=== PATIENT | female | born 1965 | race African-American/Black ===

== ENCOUNTER 2018-05-21 14:14 | Observation (INO) ==
[2018-05-21] MEDS ORDERED: ENOXAPARIN 100 MG/ML SYRINGE SUBCUT STA (14:38)
[2018-05-21] MEDS ORDERED: ENOXAPARIN 120 MG/0.8 ML SYRINGE SUBCUT ONE (14:51)
[2018-05-21] MEDS: NITROGLYCERIN SL 0.4 MG TABLET SL PRN ×2 (14:52→15:18)
[2018-05-21 14:53] LABS: Basophils # 0.1 10*3/uL (0.0-0.2); Basophils % 0.7 % (0.0-0.8); Eosinophils # 0.2 10*3/uL (0.0-0.87); Hematocrit 39.8 VOL% (35.7-47.0); Hemoglobin 13.2 GM/DL (12.0-16.0); Immature Granulocytes % 0.2 %; Immature Granulocytes Absolute 0.02 #; Lymphocytes # 2.8 10*3/uL (1.4-4.0); Lymphocytes % 32.7 % (21.3-54.2); Mean Corpuscular HGB Conc 33.2 GM/DL (32-36); Mean Corpuscular Hemoglobin 30 PG (27-34); Mean Corpuscular Volume 91.1 FL (87-102); Mean Platelet Volume 8.8 FL (9.6-12.0); Monocytes # 0.8 10*3/uL (0.11-0.8); Monocytes % 9.5 % (1.7-12.7); Neutrophils # 4.6 10*3/uL (1.4-7.4); Neutrophils % 54.9 % (38.7-73.9); Platelet Count 381 T/CUMM (130-400); Red Blood Count 4.37 MC/CUMM (3.8-5.5); Red Cell Distribution Width 13.5 % (9.3-17.3); White Blood Count 8.4 T/CUMM (4-12)
[2018-05-21 15:19] LABS: Albumin 3.7 G/DL (3.4-5.0); Bilirubin,Total 0.4 MG/DL (0.2-1.0); Calcium 8.9 MG/DL (8.5-10.1); Osmolality,Calculated 278.3 MOS/KG (273-304); Potassium 3.6 MMOL/L (3.5-5.1); Total Protein 7.9 G/DL (6.4-8.3)
[2018-05-21] MEDS ORDERED: guaiFENesin/DM ER 600-30 MG TABLET PO PRN (16:31)
[2018-05-21] MEDS ORDERED: POTASSIUM CHLORIDE 20 MEQ TABLET PO PRN (16:31)
[2018-05-21] MEDS ORDERED: diphenhydrAMINE CAP 25 MG CAPSULE PO PRN (16:31)
[2018-05-21] MEDS ORDERED: ONDANSETRON 4 MG/2 ML VIAL IV PRN (16:31)
[2018-05-21] MEDS ORDERED: BISACODYL 5 MG TABLET PO PRN (16:31)
[2018-05-21] MEDS ORDERED: MAGNESIUM SULF RIDER 4 GM in PREMIX 1 EACH IV PRN (16:31)
[2018-05-21] MEDS ORDERED: ZALEPLON 5 MG CAPSULE PO PRN (16:31)
[2018-05-21] MEDS ORDERED: ACETAMINOPHEN 325 MG TABLET PO PRN (16:31)
[2018-05-21] MEDS ORDERED: MAGNESIUM SULF RIDER 2 GM in PREMIX 1 EACH IV PRN (16:31)
[2018-05-21] MEDS ORDERED: MIDAZOLAM 2 MG/2 ML VIAL ONE ×2 (17:58→18:54)
[2018-05-21] MEDS ORDERED: LIDOCAINE 1% 20 ML VIAL ONE (17:58)
[2018-05-21] MEDS ORDERED: HEPARIN/NACL 0.9% 2 UNITS/ML 1,000 ML IV ONE (17:58)
[2018-05-21] MEDS ORDERED: fentaNYL 100 MCG/2 ML VIAL ONE (17:58)
[2018-05-21] MEDS: SODIUM CHLORIDE 0.9% 1,000 ML IV SCH (18:58)
[2018-05-21] MEDS: PANTOPRAZOLE 40 MG TABLET PO SCH (18:58)
[2018-05-21] MEDS ORDERED: clonazePAM 0.5 MG TABLET PO PRN (19:09)
[2018-05-21] MEDS ORDERED: traMADol 50 MG TABLET PO PRN (19:45)
[2018-05-21] MEDS ORDERED: hydroCHLOROthiazide 25 MG TABLET PO SCH (21:00)
[2018-05-21] MEDS ORDERED: LOSARTAN 50 MG TABLET PO SCH (21:00)
[2018-05-21 22:05] LABS: Troponin I Only < 0.015 NG/ML (0.00-0.045)
[2018-05-22] MEDS: SODIUM CHLORIDE 0.9% 1,000 ML IV SCH ×2 (02:14→13:55)
[2018-05-22 05:23] LABS: Basophils # 0.1 10*3/uL (0.0-0.2); Basophils % 0.6 % (0.0-0.8); Eosinophils # 0.1 10*3/uL (0.0-0.87); Eosinophils % 1.5 % (0.00-10.9); Hematocrit 35.3 VOL% (35.7-47.0); Hemoglobin 11.5 GM/DL (12.0-16.0); Immature Granulocytes % 0.3 %; Immature Granulocytes Absolute 0.03 #; Lymphocytes # 2.7 10*3/uL (1.4-4.0); Lymphocytes % 29.8 % (21.3-54.2); Mean Corpuscular HGB Conc 32.6 GM/DL (32-36); Mean Corpuscular Hemoglobin 30 PG (27-34); Mean Corpuscular Volume 93.4 FL (87-102); Mean Platelet Volume 8.9 FL (9.6-12.0); Monocytes # 0.8 10*3/uL (0.11-0.8); Monocytes % 8.7 % (1.7-12.7); Neutrophils # 5.3 10*3/uL (1.4-7.4); Neutrophils % 59.1 % (38.7-73.9); Platelet Count 346 T/CUMM (130-400); Red Blood Count 3.78 MC/CUMM (3.8-5.5); Red Cell Distribution Width 13.7 % (9.3-17.3); White Blood Count 8.9 T/CUMM (4-12)
[2018-05-22 05:59] LABS: Osmolality,Calculated 280.3 MOS/KG (273-304); Potassium 3.3 MMOL/L (3.5-5.1); Risk Ratio 3.83; Thyroid Stimulating Hormone 0.682 uIU/ml (0.358-3.74); VLDL CHOLESTEROL 27.8 MG/DL
[2018-05-22] MEDS ORDERED: ENOXAPARIN 40 MG/0.4 ML SYRINGE SUBCUT SCH (09:00)
[2018-05-22] MEDS ORDERED: ASPIRIN EC 81 MG TABLET PO SCH (09:00)
[2018-05-22] MEDS: PANTOPRAZOLE 40 MG TABLET PO SCH (09:31)
[2018-05-22 11:58] VITALS: BP 117/73
== END 2018-05-22 15:44 | disposition home or self-care (01) ==
LOC: N.ED 14:14 → N.EDINP 14:14 → N.TELEN 17:03
PROVIDERS: ADMIT Internal Medicine Cardiovascular Disease; ATTEND Internal Medicine Cardiovascular Disease

== ENCOUNTER 2021-04-02 22:04 | Observation (INO) ==
[2021-04-02] MEDS ORDERED: SODIUM CHLORIDE 0.9% 1,000 ML IV STA (22:26)
[2021-04-02] MEDS ORDERED: ASPIRIN 325 MG TABLET PO STA (22:26)
[2021-04-02] MEDS ORDERED: ONDANSETRON 4 MG/2 ML VIAL IV STA (22:26)
[2021-04-02 22:31] LABS: Basophils % 0.3 % (0.0-0.8); Eosinophils # 0.2 10*3/uL (0.0-0.87); Hematocrit 37.6 VOL% (35.7-47.0); Hemoglobin 12.7 GM/DL (12.0-16.0); Immature Granulocytes % 0.2 %; Immature Granulocytes Absolute 0.02 #; Lymphocytes # 2.9 10*3/uL (1.4-4.0); Lymphocytes % 31.2 % (21.3-54.2); Mean Corpuscular HGB Conc 33.8 GM/DL (32-36); Mean Corpuscular Volume 105.9 FL (87-102); Mean Platelet Volume 8.3 FL (9.6-12.0); Neutrophils % 60.3 % (38.7-73.9); Platelet Count 410 T/CUMM (130-400); Red Blood Count 3.55 MC/CUMM (3.8-5.5); Red Cell Distribution Width 16.5 % (9.3-17.3); White Blood Count 9.2 T/CUMM (4-12)
[2021-04-02 22:50] LABS: Albumin 3.8 G/DL (3.4-5.0); Bilirubin,Total 0.5 MG/DL (0.2-1.0); Calcium 9.5 MG/DL (8.5-10.1); Osmolality,Calculated 276.4 MOS/KG (273-304); Potassium 3.3 MMOL/L (3.5-5.1); Total Protein 8.2 G/DL (6.4-8.2)
[2021-04-03] MEDS ORDERED: NITROGLYCERIN SL 0.4 MG TABLET SL ONE (00:36)
[2021-04-03] MEDS ORDERED: NITROGLYCERIN SL 0.4 MG TABLET SL STA (00:37)
[2021-04-03] MEDS ORDERED: ACETAMINOPHEN 500 MG TABLET ONE (02:15)
[2021-04-03] MEDS ORDERED: ACETAMINOPHEN 500 MG TABLET PO STA (02:42)
[2021-04-03] MEDS ORDERED: DEXTROSE 50% 25 GM/50 ML VIAL IV PRN (03:14)
[2021-04-03] MEDS ORDERED: ACETAMINOPHEN 325 MG TABLET PO PRN (03:14)
[2021-04-03] MEDS ORDERED: GLUCAGON 1 MG VIAL IM PRN (03:14)
[2021-04-03] MEDS: ONDANSETRON 4 MG/2 ML VIAL IV PRN ×2 (04:09→07:11)
[2021-04-03 04:10] LABS: Basophils % 0.4 % (0.0-0.8); Eosinophils # 0.1 10*3/uL (0.0-0.87); Eosinophils % 1.8 % (0.00-10.9); Hematocrit 33.7 VOL% (35.7-47.0); Hemoglobin 11.3 GM/DL (12.0-16.0); Immature Granulocytes % 0.1 %; Immature Granulocytes Absolute 0.01 #; Lymphocytes # 2.3 10*3/uL (1.4-4.0); Lymphocytes % 31.1 % (21.3-54.2); Mean Corpuscular HGB Conc 33.5 GM/DL (32-36); Mean Platelet Volume 8.3 FL (9.6-12.0); Monocytes % 6.5 % (1.7-12.7); Neutrophils % 60.1 % (38.7-73.9); Platelet Count 354 T/CUMM (130-400); Red Blood Count 3.18 MC/CUMM (3.8-5.5); Red Cell Distribution Width 16.6 % (9.3-17.3); White Blood Count 7.3 T/CUMM (4-12)
[2021-04-03 04:32] LABS: Bilirubin,Total 0.5 MG/DL (0.2-1.0); Calcium 8.7 MG/DL (8.5-10.1); Osmolality,Calculated 282.8 MOS/KG (273-304); Potassium 3.6 MMOL/L (3.5-5.1); Risk Ratio 2.47; Total Protein 6.9 G/DL (6.4-8.2); VLDL CHOLESTEROL 13.4 MG/DL
[2021-04-03 04:36] LABS: Albumin 3.2 G/DL (3.4-5.0); Blood Urea Nitrogen 6 MG/DL (7-18); Calcium 8.5 MG/DL (8.5-10.1); Carbon Dioxide 28 MMOL/L (21-32); Glucose 92 MG/DL (74-106); Osmolality,Calculated 278.3 MOS/KG (273-304); Potassium 3.4 MMOL/L (3.5-5.1); Sodium 141 MMOL/L (136-145)
[2021-04-03 04:37] LABS: Alanine Aminotransferase 15 U/L (13-56); Alkaline Phosphatase 73 U/L (45-117); Aspartate Amino Transferase 17 U/L (0-37); Estimated Glom Filtration Rate 102 ML/MIN; Troponin I < 0.015 NG/ML (0.00-0.045)
[2021-04-03 08:04] VITALS: BP 141/88
== END 2021-04-03 08:39 | disposition home or self-care (01) ==
LOC: N.EDINP 22:04 → N.ED 22:04 → N.EDINP 04-03 08:39
PROVIDERS: ADMIT Emergency Medicine; ATTEND Emergency Medicine